=== PATIENT | female | born 1985 | race Caucasian/White ===

== ENCOUNTER 2017-02-06 16:47 | Emergency (ER) | payer OTHER ==
[~2017-02-06] VITALS: Ht 162.6 cm; Wt 95.3 kg
[2017-02-06 16:49] VITALS: BP 121/91
[2017-02-06] MEDS ORDERED: MOTRIN800 MG PO (18:12)
== END 2017-02-06 18:40 | disposition home or self-care (01) ==
LOC: EME 16:47
DX: S90.111A Contusion of right great toe without damage to nail, initial encounter (principal); W20.8XXA Other cause of strike by thrown, projected or falling object, initial encounter; R56.9 Unspecified convulsions; Z87.820 Personal history of traumatic brain injury; Z91.040 Latex allergy status
CPT/HCPCS: 73660; 85049; 99281; 99284